=== PATIENT | female | born 1985 | race Caucasian/White ===

== ENCOUNTER 2019-02-07 17:10 | Emergency (ER) | payer MEDICAID ==
--- NOTE | 2019-02-07 17:30 | EDPHY ---
H & P Stated Complaint: Hx HPV, outbreak x10D, bleeding, discharge, back pn Time Seen by Provider: 02/07/19 17:22 HPI/ROS: HPI: This is a 33-year-old female who presents with Chief Complaint: Hx HPV, outbreak x10D, bleeding, discharge, back pn Location: pelvic Quality: Vaginal discharge, vaginal irritation, back pain Duration: 10 day Signs and Symptoms: no fever, no nausea, no vomiting, no hematemesis, no blood in stool, no abdominal bloating, no diarrhea, + lower back pain, no urinary symptoms, + vaginal bleeding/discharge, no indigestion, no chest pain, no shortness of breath Timing: Acute, worsening Severity: Moderate Context: Patient reports that she was diagnosed with HPV by her holistic provider in [place] around 10 years ago presents today with 10 day history of vaginal introitus irritation, vaginal erythema and a vaginal discharge that is itchy in nature. She also notes some sores or lesions around her vaginal area. She has had back pain for the last several weeks that is lower in nature and nonradiating. She also complains of some suprapubic pressure and pain for the last month. Last menstrual period was 2 weeks ago. She is not sexually active. She does practice self masturbation. Modifying Factors: None Comment: ROS: A comprehensive 10 system review of systems is otherwise negative aside from elements mentioned in the history of present illness. MEDICAL/SURGICAL/SOCIAL HISTORY: Medical history: Chronic pain. Does not take any regular medications. Surgical history: Denies Social history: Current every day smoker. Originally from [place]. Family history noncontributory. CONSTITUTIONAL: Extremely well-appearing adult white female, awake and alert, no obvious distress HEENT: Atraumatic and normocephalic, PERRL, EOMI. Nares patent; no rhinorrhea; no nasal mucosal edema. Tympanic membranes clear. Oropharynx clear, no exudate and moist pink mucosa. Airway patent. No lymphadenopathy. No meningismus. Cardiovascular: Normal S1/S2, regular rate, regular rhythm, without murmur rub or gallop. PULMONARY/CHEST: Symmetrical and nontender. Clear to auscultation bilaterally. Good air movement. No accessory muscle usage. ABDOMEN: Soft, nondistended, nontender, no rebound, no guarding, no peritoneal signs, no masses or organomegaly. No CVAT. PELVIC: normal external genitalia, normal cervix, cervical os was closed, no cervical motion tenderness, no adnexal mass, scant light pink thin discharge, scan bleeding. The exam was performed with a guidance adviser. EXTREMITIES: 2/2 pulses, strength 5/5, no deformities, no clubbing, no cyanosis or edema. NEUROLOGICAL: no focal neuro deficits. GCS 15. SKIN: Warm and dry, no erythema. no rash. Good capillary refill. Source: Patient Exam Limitations: No limitations - Personal History Current Tetanus/Diphtheria Vaccine: No - Medical/Surgical History Hx Asthma: No Hx Chronic Respiratory Disease: No Hx Diabetes: No Hx Cardiac Disease: No Hx Renal Disease: No Hx Cirrhosis: No Hx Alcoholism: No Hx HIV/AIDS: No Hx Splenectomy or Spleen Trauma: No Other PMH: chronic pain - Social History Smoking Status: Current every day smoker Constitutional: Initial Vital Signs Temperature (C) 36.9 C 02/07/19 17:15 Heart Rate 76 02/07/19 17:15 Respiratory Rate 16 02/07/19 17:15 Blood Pressure 110/64 02/07/19 17:15 O2 Sat (%) 97 02/07/19 17:15 O2 Delivery Mode Room Air Allergies/Adverse Reactions: cabbage Allergy (Verified 02/07/19 17:15) [place]una And Derivatives [citrus] Allergy (Verified 02/07/19 17:15) Home Medications: Medication Instructions Recorded traMADol [Ultram 50 mg (*)] 50 mg PO HS #4 tab 12/22/15 traMADol [Ultram] 50 mg PO Q4 12/22/15 metroNIDAZOLE [Metrogel-Vaginal] 1 supp VG HS 5 Days #5 gel.w.appl 02/07/19 Medical Decision Making - Diagnostics Imaging Results: Imaging Impressions Pelvic/Renal Ultrasound 02/07/19 17:30 Impression: 1. 2.1 cm complex left adnexal cystic lesion may represent hemorrhagic cyst versus endometrioma. Follow-up ultrasound in 6-12 weeks is recommended for further evaluation. Aydee Hilliard was notified of these findings by telephone at 6:12 PM on 02/07/2019. ED Course/Re-evaluation: Vital signs reviewed and stable upon arrival. Urinalysis, pelvic swabs, pelvic ultrasound ordered 1811: Called by Radiology, Dr. Macias, advised pelvic ultrasound shows no ovarian torsion, no ectopic , no free fluid. Small 2 cm left adnexal cyst versus endometrioma. Recommends repeat ultrasound in 6-12 weeks. 1825: Urinalysis shows 3+ blood but no signs of infection. Laboratory studies reviewed. WBC 11 K, no signs of anemia, no signs of platelet dysfunction, no acute kidney injury, no electrolyte imbalance Wet Prep shows positive clue cells but no yeast, no Trichomonas. Given a prescription for Metrogel vaginal suppositories x5 days This patient was seen under the supervision of my secondary supervising physician. I evaluated care for this patient with attending. Differential Diagnosis: Abdominal pain in a female including but not limited to ovarian cyst, pelvic inflammatory disease, ovarian torsion, urinary tract infection, and appendicitis. - Data Points Laboratory Results: Laboratory Results 02/07/19 17:43 02/07/19 17:43 02/07/19 02/07/19 02/07/19 18:10 18:10 17:43 WBC RBC Hgb Hct MCV MCH MCHC RDW Plt Count MPV Neut % (Auto) Lymph % (Auto) [place] % (Auto) Eos % (Auto) Baso % (Auto) Nucleat RBC Rel Count Absolute Neuts (auto) Absolute Lymphs (auto) Absolute Monos (auto) Absolute Eos (auto) Absolute Basos (auto) Absolute Nucleated RBC Immature Gran % Immature Gran # Sodium Potassium Chloride Carbon Dioxide Anion Gap BUN Creatinine Estimated GFR Glucose Calcium Beta HCG, Qual NEGATIVE Urine Color Urine Appearance Urine pH Ur Specific Williams Urine Protein Urine Ketones Urine Blood Urine Nitrate Urine Bilirubin Urine Urobilinogen Ur Leukocyte Esterase Urine RBC Urine WBC Ur Epithelial Cells Urine Glucose Trichomonas (Wet Prep) NO YEAST Diana species DNA Pending C.trachomatis RNA (TMA) Pending Gardnerella DNA Probe Pending N.gonorrhoeae RNA (TMA) Pending Trichomonas DNA Probe Pending 02/07/19 02/07/19 02/07/19 17:43 17:43 17:42 WBC 10.81 10^3/uL H 10^3/uL (3.80-9.50) RBC 4.73 10^6/uL 10^6/uL (4.18-5.33) Hgb 15.2 g/dL g/dL (12.6-16.3) Hct 44.6 % % (38.0-47.0) MCV 94.3 fL fL (81.5-99.8) MCH 32.1 pg pg (27.9-34.1) MCHC 34.1 g/dL g/dL (32.4-36.7) RDW 12.3 % % (11.5-15.2) Plt Count 232 10^3/uL 10^3/uL (150-400) MPV 9.9 fL fL (8.7-11.7) Neut % (Auto) 56.5 % % (39.3-74.2) Lymph % (Auto) 32.2 % % (15.0-45.0) [place] % (Auto) 9.2 % % (4.5-13.0) Eos % (Auto) 1.2 % % (0.6-7.6) Baso % (Auto) 0.6 % % (0.3-1.7) Nucleat RBC Rel Count 0.0 % % (0.0-0.2) Absolute Neuts (auto) 6.12 10^3/uL 10^3/uL (1.70-6.50) Absolute Lymphs (auto) 3.48 10^3/uL H 10^3/uL (1.00-3.00) Absolute Monos (auto) 0.99 10^3/uL H 10^3/uL (0.30-0.80) Absolute Eos (auto) 0.13 10^3/uL 10^3/uL (0.03-0.40) Absolute Basos (auto) 0.06 10^3/uL 10^3/uL (0.02-0.10) Absolute Nucleated RBC 0.00 10^3/uL 10^3/uL (0-0.01) Immature Gran % 0.3 % % (0.0-1.1) Immature Gran # 0.03 10^3/uL 10^3/uL (0.00-0.10) Sodium 138 mEq/L mEq/L (135-145) Potassium 3.8 mEq/L mEq/L (3.5-5.2) Chloride 101 mEq/L mEq/L (97-110) Carbon Dioxide 24 mEq/l mEq/l (22-31) Anion Gap 13 mEq/L mEq/L (6-14) BUN 18 mg/dL mg/dL (7-23) Creatinine 0.9 mg/dL mg/dL (0.6-1.0) Estimated GFR > 60 Glucose 79 mg/dL mg/dL (70-100) Calcium 8.9 mg/dL mg/dL (8.5-10.4) Beta HCG, Qual Urine Color PALE YELLOW Urine Appearance CLEAR Urine pH 6.0 (5.0-7.5) Ur Specific Williams 1.006 (1.002-1.030) Urine Protein NEGATIVE (NEGATIVE) Urine Ketones NEGATIVE (NEGATIVE) Urine Blood 3+ H (NEGATIVE) Urine Nitrate NEGATIVE (NEGATIVE) Urine Bilirubin NEGATIVE (NEGATIVE) Urine Urobilinogen NEGATIVE EU EU (0.2-1.0) Ur Leukocyte Esterase NEGATIVE (NEGATIVE) Urine RBC 1-3 /hpf /hpf (0-3) Urine WBC 1-3 /hpf /hpf (0-3) Ur Epithelial Cells TRACE /lpf /lpf (NONE-1+) Urine Glucose NEGATIVE (NEGATIVE) Trichomonas (Wet Prep) Diana species DNA C.trachomatis RNA (TMA) Gardnerella DNA Probe N.gonorrhoeae RNA (TMA) Trichomonas DNA Probe Departure - Departure Disposition: Home, Routine, Self-Care Clinical Impression: Adnexal cyst, Bacterial vaginitis Condition: Good Instructions: Bacterial Vaginosis (ED), Ovarian Cyst (ED) Additional Instructions: Ultrasound shows a small 2 cm adnexal cyst on the left side. It is recommended that you have a repeat ultrasound in 6-12 weeks. Gonorrhea and chlamydia results will be ready in 24-48 hours. You may call the emergency room for the results. Wet Prep shows positive bacterial vaginosis. Please take Metrogel vaginal suppositories every night for the next 5 days. Establish care with OBGYN. Referrals: ARIANA SOTELO [Other] - As per Instructions Monica Naqvi MD [Medical Doctor] - As per Instructions Prescriptions: metroNIDAZOLE [Metrogel-Vaginal] 1 supp VG HS 5 Days #5 gel.w.appl
[2019-02-07 18:15] LABS: PLATELET COUNT 232 10^3/uL (150-400)
[2019-02-07 19:06] VITALS: BP 112/56
[2019-02-10 12:07] LABS: GC AMPLIFICATION GENPROBE NEGATIVE (NEGATIVE)
== END 2019-02-07 19:06 | disposition home or self-care (01) ==
DX: N76.0 Acute vaginitis (principal); N83.202 Unspecified ovarian cyst, left side; Z87.42 Personal history of other diseases of the female genital tract

== ENCOUNTER → 2019-03-17 | Outpatient (CLI) | payer MEDICAID | LOC: BRMIMAGING 09:20 | PROVIDERS: ATTEND Physician Assistant | DX: Z80.3 Family history of malignant neoplasm of breast (principal) | CPT/HCPCS: 76641-PO ==

== ENCOUNTER 2019-04-29 10:46 | Emergency (ER) | payer MEDICAID | END 2019-04-29 13:47 | disposition home or self-care (01) ==